=== PATIENT | male | born 1980 | race Caucasian/White ===

== ENCOUNTER 2020-05-02 13:00 | Outpatient (RCR) | payer OTHER | END 2020-05-10 10:14 | disposition home or self-care (01) | LOC: WSC 13:00 | DX: S92.225D Nondisplaced fracture of lateral cuneiform of left foot, subsequent encounter for fracture with routine healing (principal); S92.322D Displaced fracture of second metatarsal bone, left foot, subsequent encounter for fracture with routine healing; S92.332D Displaced fracture of third metatarsal bone, left foot, subsequent encounter for fracture with routine healing ==